=== PATIENT | female | born 1960 ===

== ENCOUNTER 2017-03-03 08:01 | Emergency (ER) | payer OTHER ==
[2017-03-03 08:02] VITALS: BMI 38.0
[2017-03-03 08:09] VITALS: RESP 17; TEMP 98.9
[2017-03-03] MEDS ORDERED: Lidocaine 5% Patch TD STA (08:57)
[2017-03-03] MEDS ORDERED: Lidocaine 5% Patch TD ONE (09:04)
[2017-03-03 09:12] LABS: RBC URINE 1 /hpf (0-3); URINE BILIRUBIN NEGATIVE (NEGATIVE); URINE BLOOD NEGATIVE (NEGATIVE); URINE COLOR Yellow (YELLOW); URINE GLUCOSE (UA) NORMAL (Normal); URINE KETONE NEGATIVE (NEGATIVE); URINE LEUKOCYTE ESTERASE TRACE Leu/uL (Negative); URINE PROTEIN NEGATIVE (NEGATIVE); URINE UROBILINOGEN NORMAL mg/dL (0.2-1.0); WBC URINE 1 /hpf (0-5)
--- NOTE | 2017-03-03 09:28 | C.PDOC ---
History Of Present Illness 56 y/o female presents to ED for evaluation of right sided back pain for the past week. Pt states that pain is worse with movement and deep breathing. Notes that pain occasionally radiates down to her right leg. Pt admits to lifting heavy objects at work. Denies taking any OTC pain medications. Otherwise, pt denies chest pain, shortness of breath, cough, n/v/d, abdominal pain, urinary symptoms, bowel/bladder incontinence, extremity weakness/numbness, fever, or chills. Time Seen by Provider: 03/03/17 08:10 Chief Complaint (Nursing): Back Pain History Per: Patient History/Exam Limitations: no limitations Onset/Duration Of Symptoms: Days (1 week) Current Symptoms Are (Timing): Still Present Quality Of Discomfort: "Pain" Previous Symptoms: Back Pain. denies: Prior Injury Associated Symptoms: None. denies: Incontinence, New Weakness, New Numbness Exacerbating Factor(s): Movement, Other (deep breathing) Recent travel outside of the [place]: No Additional History Per: Patient Past Medical History Reviewed: Historical Data, Nursing Documentation, Vital Signs Vital Signs: Last Vital Signs Temp 98.9 F 03/03/17 09:39 Pulse 71 03/03/17 09:39 Resp 17 03/03/17 08:06 BP 108/76 03/03/17 09:39 Pulse Ox 100 03/03/17 11:16 - Medical History PMH: Denies: Chronic Kidney Disease Family History: States: No Known Family Hx - Social History Hx Alcohol Use: No Hx Substance Use: No - Immunization History Hx Tetanus Toxoid Vaccination: No Hx Influenza Vaccination: No Hx Pneumococcal Vaccination: No Review Of Systems Constitutional: Negative for: Fever, Chills Cardiovascular: Negative for: Chest Pain, Palpitations Respiratory: Negative for: Cough, Shortness of Breath Gastrointestinal: Negative for: Nausea, Vomiting, Abdominal Pain, Diarrhea Genitourinary: Negative for: Dysuria, Frequency, Incontinence, Hematuria Musculoskeletal: Positive for: Back Pain (right sided). Negative for: Neck Pain Skin: Negative for: Rash, Bruising Neurological: Negative for: Weakness, Numbness Physical Exam - Physical Exam Appears: Non-toxic, Other (Uncomfortable) Skin: Normal Color, Warm, Dry, No Rash Head: Atraumatic, Normacephalic Eye(s): bilateral: Normal Inspection, EOMI Oral Mucosa: Moist Neck: Normal ROM, No Midline Cervical Tenderness, No Paracervical Tenderness, Supple Chest: Symmetrical Cardiovascular: Rhythm Regular, No Murmur Respiratory: No Accessory Muscle Use, No Rales, No Rhonchi, No Wheezing Gastrointestinal/Abdominal: Soft, No Tenderness Back: No CVA Tenderness, No Vertebral Tenderness, Paraspinal Tenderness (right side paraspinal thoracic region) Extremity: Normal ROM, No Tenderness, No Pedal Edema, No Calf Tenderness Neurological/Psych: Oriented x3, Normal Speech, Normal Motor, Normal Sensation Gait: Steady ED Course And Treatment O2 Sat by Pulse Oximetry: 100 (on RA) Pulse Ox Interpretation: Normal Medical Decision Making Medical Decision Making: Right ribs/chest x-ray ordered and reviewed. Pt was given Toradol for pain. On reassessment, patient is resting comfortably, with improvement of back pain. Patient remains afebrile, with no bony tenderness, extremity numbness or weakness, or abdominal pain. Patient is ambulatory in the emergency department with no signs of discomfort. Patient was advised to follow up with physician/ clinic in 1-2 days. 1059 am pt feels completely well, ready to go home, await official read rib/cxr 1115 am; rib/cxr neg, will d/c Disposition Counseled Patient/Family Regarding: Studies Performed, Diagnosis, Need For Followup, Rx Given - Disposition Referrals: Teri Sparks MD [Medical Doctor] - Disposition: HOME/ ROUTINE Disposition Time: 11:16 Condition: IMPROVED Additional Instructions: Seguimiento con el Dr. Sparks en unos [place]. [place] ibuprofeno para el dolor. Evite levantar objetos pesados. Vuelva a la naomi de emergencias por cualquier sntoma peor. 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 - Scribe Statement The provider has reviewed the documentation as recorded by the Scribe Kelly Banerjee All medical record entries made by the Scribe were at my direction and personally dictated by me. I have reviewed the chart and agree that the record accurately reflects my personal performance of the history, physical exam, medical decision making, and the department course for this patient. I have also personally directed, reviewed, and agree with the discharge instructions and disposition.
[2017-03-03 09:40] VITALS: BP 108/76; PULSE 71
[2017-03-03 09:41] VITALS: O2SAT 100
--- NOTE | 2017-03-03 11:11 | RAD ---
PROCEDURE: Radiographs of the Chest and Right Ribs. HISTORY: lateral right cp COMPARISON: None available. TECHNIQUE: Frontal radiograph of the chest and multiple oblique radiographs of the right ribs were obtained. FINDINGS: RIGHT RIBS: No fracture or focal lesion visualized. LUNGS: Clear. PLEURA: No pneumothorax or pleural fluid. CARDIOVASCULAR: Normal sized heart. No pulmonary vascular congestion. OTHER FINDINGS: None. IMPRESSION: Unremarkable radiographs of the chest and right ribs. No right rib fracture.
== END 2017-03-03 11:20 | disposition home or self-care (01) ==
LOC: C.ER 08:01
DX: S23.3XXA Sprain of ligaments of thoracic spine, initial encounter (principal); X58.XXXA Exposure to other specified factors, initial encounter
CPT/HCPCS: 71101; 81001; 84703; 96372; 99284; J1885